=== PATIENT | female | born 1960 | race African-American/Black ===

== ENCOUNTER 2022-01-20 19:22 | Emergency (ER) | payer MEDICAID, OTHER ==
[~2022-01-20] VITALS: Ht 172.7 cm; Wt 75.0 kg
[2022-01-20 20:04] VITALS: BP 148/82
[2022-01-20] MEDS ORDERED: IBUPROFEN 600MG TABLET PO ONE (23:30)
[2022-01-21] MEDS ORDERED: IBUP-2029 MT (01:43)
== END 2022-01-21 01:55 | disposition home or self-care (01) ==
LOC: ER 19:22
DX: M25.561 Pain in right knee (principal); M79.89 Other specified soft tissue disorders; R03.0 Elevated blood-pressure reading, without diagnosis of hypertension; Z91.81 History of falling; Z98.890 Other specified postprocedural states; Z88.0 Allergy status to penicillin
CPT/HCPCS: 73562; 99283

== ENCOUNTER 2022-02-24 10:42 | Inpatient (IN) | payer MEDICAID, OTHER ==
[~2022-02-24] VITALS: Ht 172.7 cm; Wt 71.2 kg
[~2022-02-24 10:42] MED LIST: IBUP-2029 MT
[2022-02-24] MEDS ORDERED: ASPIRIN 81MG TABLET PO ONE (12:45)
[2022-02-24] MEDS ORDERED: NITROGLYCERIN 0.4MG TABLET SL SL PRN (12:45)
[2022-02-24 12:53] LABS: EOSINOPHILS % 0.8 % (0.0-5.0); HEMATOCRIT. 37.8 % (36.0-48.0); HEMOGLOBIN. 12.5 g/dL (12.0-16.0); LYMPHOCYTES % 22.6 % (20.0-50.0); MEAN CORPUSCULAR HEMOGLOBIN 30.7 pg (28.0-32.0); MEAN CORPUSCULAR VOLUME 92.7 fL (81.0-99.0); MONOCYTES % 7.7 % (2.0-8.0); NEUTROPHILS % 67.9 % (40.0-76.0); PLATELET 341 x1000/uL (130-400); RED BLOOD CELL COUNT 4.08 mill/uL (4.2-5.4)
[2022-02-24 12:56] LABS: CHLORIDE 102 mEq/L (98-107)
[2022-02-24 14:04] LABS: CLARITY URINE CLEAR (CLEAR); COLOR URINE DARK YELLOW (YELLOW); KETONES URINE 1+ (NEGATIVE); LEUKOCYTE ESTERASE URINE 1+ (NEGATIVE); NITRITE URINE NEGATIVE (NEGATIVE); OCCULT BLOOD URINE TRACE (NEGATIVE); PROTEIN URINE 2+ (NEGATIVE); SPECIFIC GRAVITY URINE 1.025 (1.005-1.030)
[2022-02-24] MEDS ORDERED: MORPHINE SULFATE 4 MG/ML CPJ (NOT FOR IM USE) IV ONE (16:30)
[2022-02-24 20:00] VITALS: BP 166/89
[2022-02-24 20:07] VITALS: BP 140/96
[2022-02-24] MEDS ORDERED: ACETAMINOPHEN 325MG TABLET PO PRN (21:30)
[2022-02-24] MEDS: ONDANSETRON HCL 4MG/2ML INJ IV PRN (21:43)
[2022-02-24] MEDS: HYDROCODONE/ACETAMINOPHEN 5/325MG TABLET PO PRN (21:43)
[2022-02-24 23:46] LABS: CREATINE KINASE 195 IU/L (26-192); CREATINE KINASE MB FRACTION < 1.0 ng/mL (0.5-3.6); HDL CHOLESTEROL 101 mg/dL (40-59); LDL CHOLESTEROL 36 mg/dL (5-100)
[2022-02-25] VITALS (7 sets, daily range): BP systolic 121–153; BP diastolic 81–104
[2022-02-25 01:02] LABS: *AMPHETAMINES SCREEN URINE NEGATIVE (NEGATIVE); *BARBITURATES SCREEN URINE NEGATIVE (NEGATIVE); *BENZODIAZEPINES SCREEN URINE NEGATIVE (NEGATIVE); *COCAINE SCREEN URINE PRESUMTIVE POSITIVE (NEGATIVE); CANNABINOID URINE SCREEN PRESUMTIVE POSITIVE (NEGATIVE); METHADONE URINE SCREEN NEGATIVE (NEGATIVE); OPIATES URINE SCREEN PRESUMTIVE POSITIVE (NEGATIVE); PHENCYCLIDINE URINE SCREEN NEGATIVE (NEGATIVE)
[2022-02-25 08:22] LABS: BASOPHILS % 1.4 % (0.0-2.0); EOSINOPHILS % 3.9 % (0.0-5.0); HEMATOCRIT. 35.4 % (36.0-48.0); HEMOGLOBIN. 11.9 g/dL (12.0-16.0); LYMPHOCYTES % 42.5 % (20.0-50.0); MEAN CORPUSCULAR HEMOGLOBIN 30.6 pg (28.0-32.0); MEAN CORPUSCULAR VOLUME 91.4 fL (81.0-99.0); MEAN PLATELET VOLUME 8.5 fl (7.4-10.4); MONOCYTES % 12.6 % (2.0-8.0); NEUTROPHILS % 39.6 % (40.0-76.0); PLATELET 310 x1000/uL (130-400); RED BLOOD CELL COUNT 3.88 mill/uL (4.2-5.4); RED CELL DISTRIBUTION WIDTH 14.7 % (11.6-14.6)
[2022-02-25 08:45] LABS: CHLORIDE 99 mEq/L (98-107)
[2022-02-25] MEDS: ENOXAPARIN 40MG/0.4ML SYR SUBCUT SCH (08:46)
[2022-02-25] MEDS: HYDROCODONE/ACETAMINOPHEN 5/325MG TABLET PO PRN ×3 (08:47→18:53)
[2022-02-25] MEDS: ASPIRIN 81MG TABLET PO SCH (08:47)
[2022-02-25] MEDS: ONDANSETRON HCL 4MG/2ML INJ IV PRN (08:47)
[2022-02-25 08:56] LABS: CREATINE KINASE 149 IU/L (26-192); CREATINE KINASE MB FRACTION < 1.0 ng/mL (0.5-3.6)
[2022-02-25] MEDS ORDERED: CLONIDINE 0.1MG TABLET PO PRN (13:00)
[2022-02-25] MEDS ORDERED: NALOXONE HCL 0.4MG/ML VIAL IV PRN (15:00)
[2022-02-25] MEDS: DILTIAZEM HCL 30MG TABLET PO SCH (18:53)
[2022-02-25] MEDS ORDERED: METOPROLOL TARTRATE 25MG TABLET PO SCH (21:00)
[2022-02-26] MEDS: DILTIAZEM HCL 30MG TABLET PO SCH ×4 (00:01→16:12)
[2022-02-26 04:00] VITALS: BP 125/86
[2022-02-26] MEDS: HYDROCODONE/ACETAMINOPHEN 5/325MG TABLET PO PRN ×3 (04:31→20:13)
[2022-02-26 08:18] VITALS: BP 140/83
[2022-02-26 08:32] LABS: BASOPHILS % 1.3 % (0.0-2.0); EOSINOPHILS % 3.3 % (0.0-5.0); HEMATOCRIT. 35.9 % (36.0-48.0); HEMOGLOBIN. 11.9 g/dL (12.0-16.0); LYMPHOCYTES % 33.3 % (20.0-50.0); MEAN CORPUSCULAR HEMOGLOBIN 30.5 pg (28.0-32.0); MEAN CORPUSCULAR VOLUME 92.4 fL (81.0-99.0); MONOCYTES % 13.1 % (2.0-8.0); PLATELET 302 x1000/uL (130-400); RED BLOOD CELL COUNT 3.89 mill/uL (4.2-5.4); RED CELL DISTRIBUTION WIDTH 14.3 % (11.6-14.6)
[2022-02-26] MEDS: ENOXAPARIN 40MG/0.4ML SYR SUBCUT SCH (09:00)
[2022-02-26] MEDS: ASPIRIN 81MG TABLET PO SCH (09:00)
[2022-02-26 09:48] LABS: CHLORIDE 98 mEq/L (98-107)
[2022-02-26] MEDS ORDERED: POTASSIUM CHLORIDE 20MEQ/PACKET PO NR ×2 (10:30→16:00)
[2022-02-26 11:33] VITALS: BP 131/81
[2022-02-26 15:20] VITALS: BP 117/76
[2022-02-26 20:00] VITALS: BP 132/88
[2022-02-27] VITALS: BP 129/80
[2022-02-27] MEDS: DILTIAZEM HCL 30MG TABLET PO SCH ×4 (00:02→17:18)
[2022-02-27 04:00] VITALS: BP 130/83
[2022-02-27 08:00] VITALS: BP 138/82
[2022-02-27] MEDS: ENOXAPARIN 40MG/0.4ML SYR SUBCUT SCH (09:57)
[2022-02-27] MEDS: ASPIRIN 81MG TABLET PO SCH (09:57)
[2022-02-27] MEDS: HYDROCODONE/ACETAMINOPHEN 5/325MG TABLET PO PRN ×2 (09:58→17:17)
[2022-02-27] MEDS ORDERED: POTASSIUM CHLORIDE 20MEQ/PACKET PO SCH ×2 (10:00→17:00)
[2022-02-27] MEDS: ONDANSETRON HCL 4MG/2ML INJ IV PRN (10:02)
[2022-02-27 11:38] VITALS: BP 151/90
[2022-02-27 16:00] VITALS: BP 125/81
[2022-02-27 20:00] VITALS: BP 132/84
[2022-02-28] VITALS: BP 144/94
[2022-02-28] MEDS: DILTIAZEM HCL 30MG TABLET PO SCH ×4 (01:35→17:37)
[2022-02-28 04:00] VITALS: BP 138/86
[2022-02-28 06:32] LABS: BASOPHILS % 1.1 % (0.0-2.0); EOSINOPHILS % 4.6 % (0.0-5.0); HEMATOCRIT. 35.3 % (36.0-48.0); HEMOGLOBIN. 11.8 g/dL (12.0-16.0); LYMPHOCYTES % 39.1 % (20.0-50.0); MEAN CORPUSCULAR VOLUME 93.2 fL (81.0-99.0); MEAN PLATELET VOLUME 8.5 fl (7.4-10.4); MONOCYTES % 11.9 % (2.0-8.0); NEUTROPHILS % 43.3 % (40.0-76.0); PLATELET 298 x1000/uL (130-400); RED BLOOD CELL COUNT 3.79 mill/uL (4.2-5.4); RED CELL DISTRIBUTION WIDTH 14.6 % (11.6-14.6)
[2022-02-28 06:50] LABS: CHLORIDE 101 mEq/L (98-107)
[2022-02-28 08:00] VITALS: BP 146/91
[2022-02-28] MEDS: ENOXAPARIN 40MG/0.4ML SYR SUBCUT SCH (09:18)
[2022-02-28] MEDS: ASPIRIN 81MG TABLET PO SCH (09:18)
[2022-02-28] MEDS: HYDROCODONE/ACETAMINOPHEN 5/325MG TABLET PO PRN ×2 (09:21→17:37)
[2022-02-28 12:00] VITALS: BP 147/101
[2022-02-28] MEDS: GUAIFENESIN 200MG/10ML SUGAR FREE UDC PO PRN ×2 (12:21→17:38)
[2022-02-28] MEDS ORDERED: ASPI-1160 PO (13:47)
[2022-02-28] MEDS ORDERED: DILT30TA38 PO (13:47)
[2022-02-28 16:00] VITALS: BP 138/96
[2022-02-28 20:52] VITALS: BP 140/94
[2022-03-01 00:15] VITALS: BP 135/88
[2022-03-01] MEDS: HYDROCODONE/ACETAMINOPHEN 5/325MG TABLET PO PRN ×4 (00:16→15:50)
[2022-03-01] MEDS: GUAIFENESIN 200MG/10ML SUGAR FREE UDC PO PRN ×3 (00:17→18:56)
[2022-03-01] MEDS: DILTIAZEM HCL 30MG TABLET PO SCH ×4 (00:17→18:54)
[2022-03-01 05:57] VITALS: BP 127/81
[2022-03-01 06:54] LABS: BASOPHILS % 0.9 % (0.0-2.0); EOSINOPHILS % 4.8 % (0.0-5.0); HEMATOCRIT. 35.5 % (36.0-48.0); HEMOGLOBIN. 11.8 g/dL (12.0-16.0); LYMPHOCYTES % 39.4 % (20.0-50.0); MEAN CORPUSCULAR HEMOGLOBIN 30.9 pg (28.0-32.0); MEAN CORPUSCULAR VOLUME 93.2 fL (81.0-99.0); MEAN PLATELET VOLUME 8.5 fl (7.4-10.4); NEUTROPHILS % 40.9 % (40.0-76.0); PLATELET 275 x1000/uL (130-400); RED BLOOD CELL COUNT 3.81 mill/uL (4.2-5.4); RED CELL DISTRIBUTION WIDTH 14.7 % (11.6-14.6)
[2022-03-01 07:03] LABS: CHLORIDE 100 mEq/L (98-107)
[2022-03-01 08:00] VITALS: BP 120/81
[2022-03-01] MEDS: ENOXAPARIN 40MG/0.4ML SYR SUBCUT SCH (09:42)
[2022-03-01] MEDS: ASPIRIN 81MG TABLET PO SCH (09:42)
[2022-03-01 12:00] VITALS: BP 129/89
[2022-03-01 16:00] VITALS: BP 125/92
[2022-03-01 20:00] VITALS: BP 122/80
[2022-03-02] VITALS: BP 127/89
[2022-03-02] MEDS: DILTIAZEM HCL 30MG TABLET PO SCH ×2 (00:17→05:13)
[2022-03-02 04:00] VITALS: BP 128/87
[2022-03-02 08:00] VITALS: BP 119/89
[2022-03-02] MEDS: ASPIRIN 81MG TABLET PO SCH (08:36)
[2022-03-02] MEDS: GUAIFENESIN 200MG/10ML SUGAR FREE UDC PO PRN (08:36)
[2022-03-02] MEDS: ENOXAPARIN 40MG/0.4ML SYR SUBCUT SCH (08:37)
[2022-03-02 08:46] VITALS: BP 119/89
== END 2022-03-02 11:05 | disposition home or self-care (01) | DRG 203 ==
LOC: ER 10:42 → 7WST 16:45 → EDBEDREQ 16:49 → EDBEDREQTM 16:49
PROVIDERS: ADMIT Internal Medicine; ATTEND Internal Medicine
DX: M94.0 Chondrocostal junction syndrome [Tietze] (principal); I24.9 Acute ischemic heart disease, unspecified; E78.5 Hyperlipidemia, unspecified; F14.10 Cocaine abuse, uncomplicated; I10 Essential (primary) hypertension; E87.6 Hypokalemia; R74.01 Elevation of levels of liver transaminase levels; I07.1 Rheumatic tricuspid insufficiency; F19.10 Other psychoactive substance abuse, uncomplicated; N39.0 Urinary tract infection, site not specified; R82.71 Bacteriuria; Z88.0 Allergy status to penicillin; Z96.649 Presence of unspecified artificial hip joint; Z20.822 Contact with and (suspected) exposure to COVID-19; I16.0 Hypertensive urgency
CPT/HCPCS: 36415; 71045; 76700; 80048; 80053; 80061; 80076; 80305; 81003; 82550; 82553; 83735; 83880; 84443; 84484; 85025; 87426; 93005; 93306; 93880; 99285; J1650; J2270; J2405

== ENCOUNTER 2022-03-18 20:52 | Emergency (ER) | payer OTHER ==
[~2022-03-18] VITALS: Ht 167.6 cm; Wt 59.0 kg
[~2022-03-18 20:52] MED LIST changes: +ASPI-1160 PO; +DILT30TA38 PO
[2022-03-18 21:00] VITALS: BP 134/82
[2022-03-18] MEDS ORDERED: ACETAMINOPHEN 325MG TABLET PO ONE (23:15)
[2022-03-18] MEDS ORDERED: TETANUS, DIPHTHERIA, PERTUSSIS VAC/PF 0.5ML (>10YR OLD) IM ONE (23:15)
[2022-03-19] MEDS ORDERED: BACITRACIN ZINC OINT UDPKT TOP ONE (01:15)
[2022-03-19] MEDS ORDERED: LIDOCAINE HCL/PF 1% 10 MG/ML 5ML VIAL INFIL ONE (01:15)
[2022-03-19] MEDS ORDERED: ACET-2708 MT (01:43)
== END 2022-03-19 02:52 | disposition home or self-care (01) ==
LOC: ER 20:52
DX: S01.81XA Laceration without foreign body of other part of head, initial encounter (principal); Y07.03 Male partner, perpetrator of maltreatment and neglect; X99.8XXA Assault by other sharp object, initial encounter; F10.129 Alcohol abuse with intoxication, unspecified; Y90.9 Presence of alcohol in blood, level not specified; F12.929 Cannabis use, unspecified with intoxication, unspecified; Y93.89 Activity, other specified; W01.198A Fall on same level from slipping, tripping and stumbling with subsequent striking against other object, initial encounter; Y93.02 Activity, running; Y92.89 Other specified places as the place of occurrence of the external cause
CPT/HCPCS: 12002; 70450; 72125; 99284; J3490

== ENCOUNTER 2022-04-07 12:19 | Emergency (ER) | payer MEDICAID, OTHER ==
[~2022-04-07] VITALS: Ht 172.7 cm; Wt 75.0 kg
[~2022-04-07 12:19] MED LIST changes: +ACET-2708 MT
[2022-04-07] MEDS ORDERED: ALBU6.7H3 INH (13:54)
[2022-04-07 14:50] VITALS: BP 123/75
== END 2022-04-07 14:51 | disposition home or self-care (01) ==
LOC: ER 12:19
DX: Z48.02 Encounter for removal of sutures (principal); Z76.0 Encounter for issue of repeat prescription
CPT/HCPCS: 99281; Z7610

== ENCOUNTER 2022-09-27 09:20 | Emergency (ER) | payer MEDICAID, OTHER ==
[~2022-09-27] VITALS: Ht 172.7 cm; Wt 64.0 kg
[~2022-09-27 09:20] MED LIST changes: +ALBU6.7H3 INH; +DILT30TA37 PO; -DILT30TA38 PO
[2022-09-27] MEDS ORDERED: IBUPROFEN 400MG TABLET PO ONE (12:00)
[2022-09-27] MEDS ORDERED: DEXAMETHASONE 4MG TABLET PO ONE (12:00)
[2022-09-27] MEDS ORDERED: AMOXICILLIN/POTASSIUM CLAVULANATE 875/125MG TAB PO ONE (12:45)
[2022-09-27] MEDS ORDERED: AZITHROMYCIN 500 MG TABLET PO ONE (12:45)
[2022-09-27] MEDS ORDERED: AZIT500T8 MT (13:53)
[2022-09-27] MEDS ORDERED: AMOX1TAB16 MT (13:53)
[2022-09-27 14:12] VITALS: BP 118/69
== END 2022-09-27 14:13 | disposition home or self-care (01) ==
LOC: ER 09:32
DX: J18.9 Pneumonia, unspecified organism (principal); F12.10 Cannabis abuse, uncomplicated; Z79.899 Other long term (current) drug therapy; Z88.0 Allergy status to penicillin; Z20.822 Contact with and (suspected) exposure to COVID-19
CPT/HCPCS: 71045; 87070; 87426; 87430; 87804; 99284; C9803; J8540

== ENCOUNTER 2022-10-15 07:36 | Emergency (ER) | payer OTHER ==
[~2022-10-15] VITALS: Ht 170.2 cm; Wt 73.0 kg
[~2022-10-15 07:36] MED LIST changes: +AMOX1TAB16 MT; +AZIT500T8 MT
[2022-10-15 07:38] VITALS: BP 166/109
[2022-10-15 08:05] LABS: BASOPHILS % 2.5 % (0.0-2.0); EOSINOPHILS % 2.7 % (0.0-5.0); HEMATOCRIT. 35.9 % (36.0-48.0); HEMOGLOBIN. 11.9 g/dL (12.0-16.0); MEAN CORPUSCULAR HEMOGLOBIN 31.7 pg (28.0-32.0); MEAN CORPUSCULAR VOLUME 95.2 fL (81.0-99.0); MEAN PLATELET VOLUME 7.4 fl (7.4-10.4); MONOCYTES % 8.1 % (2.0-8.0); NEUTROPHILS % 43.7 % (40.0-76.0); PLATELET 232 x1000/uL (130-400); RED BLOOD CELL COUNT 3.77 mill/uL (4.2-5.4); RED CELL DISTRIBUTION WIDTH 14.7 % (11.6-14.6)
[2022-10-15 08:17] LABS: CHLORIDE 104 mEq/L (98-107)
[2022-10-15] MEDS ORDERED: BENZ200C52 MT (09:29)
[2022-10-15] MEDS ORDERED: IBUPROFEN 600MG TABLET PO ONE (09:30)
== END 2022-10-15 09:30 | disposition home or self-care (01) ==
LOC: ER 07:36
DX: R07.89 Other chest pain (principal); F12.10 Cannabis abuse, uncomplicated; I25.2 Old myocardial infarction; I10 Essential (primary) hypertension; Z88.0 Allergy status to penicillin; Z98.890 Other specified postprocedural states
CPT/HCPCS: 36415; 71045; 80053; 83880; 84484; 85025; 93005; 99285

== ENCOUNTER 2023-02-05 19:25 | Emergency (ER) | payer OTHER ==
[~2023-02-05] VITALS: Ht 177.8 cm; Wt 65.0 kg
[~2023-02-05 19:25] MED LIST changes: +BENZ200C52 MT
[2023-02-05 19:32] VITALS: BP 138/90; PULSE 70; RESP 16; TEMP 98.4; O2SAT 99
[2023-02-05] MEDS ORDERED: SODIUM CHLORIDE 0.9% 1,000 ML IV ONE (20:00)
== END 2023-02-05 21:43 | disposition left against medical advice (07) ==
LOC: ER 19:25
DX: R41.82 Altered mental status, unspecified (principal); F12.10 Cannabis abuse, uncomplicated; Z79.899 Other long term (current) drug therapy; Z88.0 Allergy status to penicillin
CPT/HCPCS: 99283; J7030